=== PATIENT | female | born 1985 | race Caucasian/White ===

== ENCOUNTER 2020-04-03 10:59 | Emergency (ER) | payer OTHER, SELFPAY ==
--- NOTE | ~2020-04-03 | XR_ITS ---
EXAMINATION: XR wrist LT min 3V DATE: 04/03/2020 11:53 INDICATION: Right wrist pain and swelling post injury TECHNIQUE: Posteroanterior, ulnar deviation, oblique, and lateral views of the right wrist were obtai nithya. COMPARISON: none FINDINGS: Alignment is normal. No fracture. Joint spaces are normal. Diffuse soft tissue swelling over the dors um aspect of the wrist and hand. IMPRESSION: 1. No osseous abnormality. Reviewed, dictated and finalized at location A. IMPRESSION: 1. No osseous abnormality.
[2020-04-03 11:11] VITALS: BP 143/94; PULSE 98; RESP 19; TEMP 36.8; O2SAT 100
--- NOTE | 2020-04-03 11:45 | ED.UPPEXIN ---
HPI - Extremity Injury (Upper) General Chief Complaint: Extremity Injury, Upper <Alana Byrd PA-C - Last Filed: 04/03/20 13:32> Stated Complaint: left hand swelling/st <SAYRA Butts Last Filed: 04/03/20 13:32> Time Seen by Provider: 04/03/20 11:11 <Alana Byrd PA-C - Last Filed: 04/03/20 13:32> Source: patient <SAYRA Butts Last Filed: 04/03/20 13:32> Mode of arrival: ambulatory <SAYRA Butts Last Filed: 04/03/20 13:32> Limitations: no limitations <SAYRA Butts Last Filed: 04/03/20 13:32> History of Present Illness HPI narrative: This is a 35 year old female that presents to the ER for left wrist swelling that started 2 days ago. Reports pain and decreased ROM in the wrist. Reports she has been taking Ibuprofen with little relief. Also reports her upper teeth have been bothering her on both sides. Also reports sore throat. Denies fever, cough, shortness of breath or vomiting. <SAYRA Butts Last Filed: 04/03/20 13:32> Related Data Allergies/Adverse Reactions: Allergies Allergy/AdvReac Type Severity Reaction Status Date / Time Penicillins Allergy Unknown Verified 04/03/20 11:48 <SAYRA Butts Last Filed: 04/03/20 13:32> Review of Systems Review of Systems: Narrative: CONSTITUTIONAL: Denies fever, chills ENT: Reports sore throat, and dentalgia GASTROINTESTINAL: Denies vomiting GENITOURINARY: Denies dysuria or hematuria. SKIN: Denies rash MUSCULOSKELETAL: Reports joint pain, and myalgia. NEUROLOGIC: Denies numbness, or weakness. <SAYRA Butts Last Filed: 04/03/20 13:32> All systems reviewed & are unremarkable except as noted in HPI and below <SAYRA Butts Last Filed: 04/03/20 13:32> [facility] Past Medical History Medical History: Medical History (Updated 04/03/20 @ 13:28 by Alana Byrd PA-C) History of anxiety History of depression History of seizures <lAana Byrd PA-C - Last Filed: 04/03/20 13:32> Social History Social History: Social History (Updated 04/03/20 @ 11:47 by Alana Byrd PA-C) Smoking status: Current every day smoker Substance use: never Gender identity (if verbalized by the patient): Female <Alana Byrd PA-C - Last Filed: 04/03/20 13:32> Exam Narrative: Exam Narrative: GENERAL: Well-appearing, well-nourished, and in no acute distress. HEAD: Normocephalic, atraumatic. EYES: EOMI. ENT: Nares clear, no rhinorrhea or epistaxis. Mucous membranes moist. Oropharynx without tonsillar hypertrophy, exudate or other lesions. Bilateral TMs pearly cohen non-bulging. Poor dentition. No erythema or swelling to suggest a dental abscess NECK: Supple. No adenopathy or masses. CHEST: Clear to auscultation. No respiratory distress. No wheezes rales or rhonchi HEART: Regular rate and rhythm. No murmur heard. Normal peripheral pulses. EXTREMITIES: Normal range of motion. Mild swelling about the left wrist. No erythema or warmth of the wrist. Normal radial pulses. Normal sensation SKIN: Warm, dry, no rash. NEURO: No focal deficits. Alert and oriented x3. PSYCH: Normal mood and affect <Alana Byrd PA-C - Last Filed: 04/03/20 13:32> Course Vital Signs Vital signs: Vital Signs Temperature 98.2 F 04/03/20 11:11 Pulse Rate 98 04/03/20 11:11 Respiratory Rate 19 04/03/20 11:11 Blood Pressure 143/94 H 04/03/20 11:11 Pulse Oximetry 100 04/03/20 11:11 Temperature 98.2 F 04/03/20 11:11 Pulse Rate 110 H 04/03/20 13:50 Respiratory Rate 19 04/03/20 13:50 Blood Pressure 81/53 L 04/03/20 13:50 Pulse Oximetry 100 04/03/20 13:50 <Alana Byrd PA-C - Last Filed: 04/03/20 13:32> Vital Signs Temperature 98.2 F 04/03/20 11:11 Pulse Rate 98 04/03/20 11:11 Respiratory Rate 19 04/03/20 11:11 Blood Pressure 143/94 H 04/03/20 11:11 Pulse Oximetry 100 04/03/20 11:11 Tempera
[2020-04-03 11:56] LABS: Hematocrit 25.3 % (37.0-47.0); Mean Corpuscular HGB Conc 31.6 g/dl (32-36); Mean Corpuscular Hemoglobin 27.2 pg (26-34); Mean Corpuscular Volume 86.1 fl (80-100); Mean Platelet Volume 9.8 fl (7.4-10.4); Platelet Count Result 660 k/mm3 (150-375); Red Blood Count 2.94 M/mm3 (4.2-5.4); Red Cell Distribution Width 13.4 % (11.5-14.5); White Blood Count 21.5 K/mm3 (4.5-10.0)
[2020-04-03 12:01] LABS: Lymphocytes Absolute Manual 4.94 K/mm3 (1.1-4.5); Monocytes Percent Manual 7 % (3-9); Neutrophils Percent Manual 70 % (46-73); Total Cells Counted 100
[2020-04-03 12:02] LABS: Hypochromasia 2+ (NORMAL); Platelet Estimate Increased (Adequate)
[2020-04-03 12:09] LABS: Blood Urea Nitrogen 7 mg/dL (7-17); CRP 5.4 mg/dL (<1.0); Calcium 8.4 mg/dL (8.4-10.2); Carbon Dioxide 27 mmol/L (22-30); Chloride 104 mmol/L (98-107); Estimated CRCL calculation 121 ml/min; Estimated Glomerular Filt Rate > 60; Glucose 102 mg/dL (65-105); Potassium 3.4 mmol/L (3.4-5.0); Sodium 138 mmol/L (137-145); Uric Acid 4.7 mg/dL (2.5-7.5)
[2020-04-03 12:29] LABS: Erythrocyte Sedimentation Rate 116 mm/hr (0-20)
[2020-04-03 13:08] LABS: Beta HCG Quantitative < 2.39 mIU/ML
[2020-04-03] MEDS: CLINDAMYCIN HCL 150 MG CAP 450 MG PO (13:23)
--- NOTE | 2020-04-03 13:44 | PC.NURSE ---
This RN went in with patient's AMA paperwork. Pt c/o chest pain, thrashing in bed. This RN notified EDP of patient's status, Pt states I'm leaving anyway. This RN checked patient's vitals once again with BP of 81/53. HR 110, 100% SpO2 on room air. This RN educated patient on risk of leaving and benefits of staying for further evaluation. This RN told patient with her chest pain and low blood pressure, she can could be putting her life at risk. Pt states okay great, take this shit off me. Pt signed AMA form and walked out without paperwork provided by EDP. Pt briskly walked out of ER without any difficulty, and unassisted.
[2020-04-03 13:50] VITALS: BP 81/53; PULSE 110; RESP 19; O2SAT 100
== END 2020-04-03 13:52 | disposition left against medical advice (07) ==
PROVIDERS: Physician Assistant; Emergency Provider Emergency Medicine
DX: K08.89 Other specified disorders of teeth and supporting structures (principal)
CPT/HCPCS: 36415; 73110; 80048; 84550; 84702; 85025; 85652; 86140; 87081; 87880; 99283; A9270

== ENCOUNTER 2020-04-05 00:01 | Emergency (ER) | payer OTHER, SELFPAY ==
--- NOTE | ~2020-04-05 | XR_ITS ---
EXAMINATION: XR hand LT min 3V DATE: 04/05/2020 00:40 INDICATION: Left hand pain. TECHNIQUE: Posteroanterior, oblique and lateral views of the left hand were obtained. COMPARISON: None. FINDINGS: Alignment is normal. No fracture. Joint spaces are normal. Soft tissue swelling and subcutaneous liliana a most prominent over the dorsum of the hands and extending into the wrist and proximal forearm. IMPRESSION: 1. No osseous abnormality. Reviewed, dictated and finalized at location A. IMPRESSION: 1. No osseous abnormality.
[2020-04-05 00:08] VITALS: BP 116/62; PULSE 110; RESP 21; TEMP 36.8; O2SAT 100
--- NOTE | 2020-04-05 00:23 | ED.EXTPRO ---
HPI - Extremity Problem General Chief complaint: Extremity Problem,Nontraumatic Stated complaint: ?cellulitis Time Seen by Provider: 04/05/20 00:13 Source: RN notes reviewed History of Present Illness HPI Narrative: Patient presents emergency department from home for left wrist pain. Patient states that she had a seizure in her sleep 4 days ago and has been having pain in her left wrist since that time is progressively worsening. Patient states the pain only began after having a seizure patient states that she has noted increased swelling to her left wrist as well as a dorsal aspect of her left hand at the base of her left thumb she said pain with any movement of the left wrist with pain radiating to the left forearm. She states she was seen in the emergency department yesterday and was having the pain as well as dental pain and at that time had been placed on clindamycin. She states her dental pain has improved with the clindamycin. She denies any fevers or chills, numbness or tingling in the extremities or any other symptoms of concern Related Data Allergies Allergy/AdvReac Type Severity Reaction Status Date / Time Penicillins Allergy Unknown Verified 04/05/20 00:03 Review of Systems Review of Systems: Narrative: Gen.: Denies fevers or chills ENT: Denies congestion Respiratory: Denies shortness of breath or cough CV: Denies chest pain or palpitations GI: Denies abdominal pain nausea, emesis or diarrhea denies burning, urgency, frequency or hematuria Musculoskeletal: See HPI Neuro: Denies numbness, tingling, weakness or focal weakness Skin: Denies rash Except as documented, all other systems reviewed and negative [facility] Past Medical History Medical History History of anxiety History of depression History of seizures Social History Social History Smoking status: Current every day smoker Substance use: never Gender identity (if verbalized by the patient): Female Exam Narrative: Exam Narrative: APPEARANCE: No acute distress, nontoxic, resting in bed EYES: EOMI HEENT: Normocephalic, atraumatic, OMM RESPIRATORY: No respiratory distress Clear to auscultation bilaterally with no rhonchi wheezing or rales. CARDIOVASCULAR: Regular rate and rhythm without murmurs rubs or gallops. ABDOMINAL: Soft, nontender, nondistended, no rebound or guarding MUSCULOSKELETAl: Moves all extremities. No clubbing, cyanosis the left wrist is tender to palpation over the radial aspect to the midline from the midline laterally the patient is not tender to palpation over the ulnar aspect. There is no pain with flexion of the wrist but pain with active extension of the wrist no pain with passive lateral and medial movement there is swelling of the left wrist dorsal hand and the base of the first metatarsal radial pulse 2+, neurovascular intact no overlying erythema or wounds NEURO: Awake and alert. Following commands, speech normal, no focal deficits SKIN:: Warm, dry. No rashes lesions or abrasions PSYCHIATRIC: Normal affect/mood, Course Course Emergency Course: Reviewed old records including blood work from yesterday showing leukocytosis of 21 and a hemoglobin of 8 Reviewed patient's old records she has had elevated white count in past discussed with the patient she is had no work-up for her leukocytosis thrombocytosis and anemia will refer to hematology Placed in volar splint states wrist is feeling much better following this Discussed with patient results of workup and diagnosis. Discussed need for follow-up with primary care, proper use of medication, and reasons to return to the emergency department. Patient understands and agrees to current treatment plan Vital Signs Vital signs: Vital Signs Temperature 98.3 F 04/05/20 00:08 Pulse Rate 110 H 04/05/20 00:08 Respiratory Rate 21 H 04/05/20 00:08 Blood Pressure 116/62 0
[2020-04-05 00:57] LABS: Basophils Absolute Auto 0.1 K/mm3 (0.0-0.1); Basophils Percent Auto 0.3 % (0.2-1.2); Eosinophils Absolute Auto 0.3 K/mm3 (0-0.3); Eosinophils Percent Auto 1.5 % (0-4.4); Hematocrit 25.1 % (37.0-47.0); Immature Granulocyte Percent A 0.5 % (0-0.5); Lymphocytes Absolute Auto 6.76 K/mm3 (0.9-3.2); Mean Corpuscular HGB Conc 31.9 g/dl (32-36); Mean Corpuscular Hemoglobin 27.4 pg (26-34); Mean Platelet Volume 9.8 fl (7.4-10.4); Monocytes Absolute Auto 1.1 K/mm3 (0.1-0.6); Monocytes Percent Auto 5.2 % (2.6-8.5); Neutrophils Absolute Auto 12.2 K/mm3 (1.3-6.7); Neutrophils Percent Auto 59.5 % (45.5-73.1); Nucleated Red Blood Cells Perc 0.1 % (0.0-0.2); Platelet Count Result 725 k/mm3 (150-375); Red Blood Count 2.92 M/mm3 (4.2-5.4); Red Cell Distribution Width 13.2 % (11.5-14.5); White Blood Count 20.5 K/mm3 (4.5-10.0)
--- NOTE | 2020-04-05 00:58 | PC.NURSE ---
pt refuses IV at this time. notified.
[2020-04-05 01:05] LABS: Prothrombin Time 12.5 Seconds (11.1-14.7)
[2020-04-05 01:06] LABS: Partial Thromboplastin Time 27.5 SECONDS (22.3-36.8)
[2020-04-05 01:13] LABS: Alanine Aminotransferase 23 U/L (4-35); Albumin Level 3.9 g/dL (3.5-5.1); Alkaline Phosphatase 146 U/L (38-126); Aspartate Amino Transferase 29 U/L (14-36); Bilirubin,Total < 0.1 mg/dL (0.2-1.3); Blood Urea Nitrogen 10 mg/dL (7-17); Calcium 8.7 mg/dL (8.4-10.2); Carbon Dioxide 27 mmol/L (22-30); Chloride 105 mmol/L (98-107); Estimated CRCL calculation 97 ml/min; Estimated Glomerular Filt Rate > 60; Glucose 102 mg/dL (65-105); Potassium 3.7 mmol/L (3.4-5.0); Sodium 138 mmol/L (137-145)
[2020-04-05 01:14] LABS: Hypochromasia 1+ (NORMAL); Large Platelets Present; Platelet Estimate Increased (Adequate); Stomatocytes 1+ (NORMAL)
[2020-04-05 01:20] VITALS: BP 115/85; PULSE 105; RESP 18; O2SAT 99
[2020-04-05 02:35] VITALS: BP 114/79; PULSE 88; RESP 18; O2SAT 99
[2020-04-05 03:26] VITALS: BP 121/81; PULSE 91; RESP 16; O2SAT 95
[2020-04-05 03:48] VITALS: BP 115/76; PULSE 94; RESP 18; O2SAT 97
== END 2020-04-05 03:50 | disposition home or self-care (01) ==
PROVIDERS: Emergency Provider Emergency Medicine
DX: M25.532 Pain in left wrist (principal); D64.9 Anemia, unspecified
CPT/HCPCS: 29125; 36415; 73130; 80053; 83605; 85025; 85610; 85730; 87040; 99283